=== PATIENT | male | born 1960 | race Hispanic/Latino ===

== ENCOUNTER 2024-05-21 10:35 | Emergency (ER) | payer OTHER ==
[~2024-05-21] VITALS: Ht 177.8 cm; Wt 90.3 kg
--- NOTE | 2024-05-21 11:29 | EKG ---
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
[2024-05-21 11:44] LABS: BASOPHILS # (AUTO) 0.02 K/uL (0.00-0.20); BASOPHILS % (AUTO) 0.1 % (0.0-5.0); EOSINOPHILS # (AUTO) 0.01 K/uL (0.00-0.70); EOSINOPHILS % (AUTO) 0.1 % (0.0-8.0); HEMATOCRIT 47.3 % (42-54); IMMATURE GRANULOCYTE ABSOLUTE 0.07 K/uL (0-1); LYMPHOCYTES % (AUTO) 6.2 % (21.0-51.0); MEAN CORPUSCULAR HEMOGLOBIN 33.2 pg (27.0-33.0); MEAN CORPUSCULAR HGB CONC 35.3 g/dL (32.0-36.0); MONOCYTES # (AUTO) 1.3 K/uL (0.1-1.0); MONOCYTES % (AUTO) 8.1 % (3.0-13.0); NEUTROPHILS # (AUTO) 13.4 K/uL (1.8-7.7); NEUTROPHILS % (AUTO) 85.1 % (40.0-77.0); PLATELET COUNT (AUTO) 229 K/uL (130-400); RED BLOOD CELL COUNT(AUTO) 5.03 MIL/uL (4.50-6.20); RED CELL DISTRIBUTION WIDTH 11.9 % (11.0-15.5); WHITE BLOOD COUNT (AUTO) 15.8 K/uL (4.8-10.8)
--- NOTE | 2024-05-21 11:58 | HMCIMG ---
PORTABLE CHEST RADIOGRAPH INDICATION: cp COMPARISON: None FINDINGS: Heart size is normal. The pulmonary vascularity and jethro appear normal. Subtle linear lucency along the right pleural-mediastinal interface, perhaps artifactual shadowing from underlying airways. No abnormal pulmonary parenchymal opacity or consolidation identified. No significant pleural effusion noted. No pneumothorax detected. IMPRESSION: Subtle linear lucency along the right pleural-mediastinal interface, perhaps artifactual shadowing from underlying airways. If concern for pneumomediastinum, CT imaging of the chest is recommended for further evaluation.
[2024-05-21 12:01] LABS: CREATININE 1.1 mg/dL (0.5-1.3); POTASSIUM 5.1 mmol/L (3.5-5.1)
[2024-05-21 12:52] LABS: B-TYPE NATRIURETIC PEPTIDE 12 pg/mL (0-100)
--- NOTE | 2024-05-21 14:42 | ERN ---
General Chief Complaint: Hypertension Stated Complaint: HYPERTENSION, DIZZINESS Time Seen by MD: 10:38 Time Seen by Midlevel: 10:38 Source: patient History of Present Illness Initial Comments Patient is a 64-year-old male with a past medical history of hypertension presenting to the emergency department for an elevated blood pressure reading. Patient states that his blood pressure is normally controlled in the 120s 130 systolic. Over the last two days blood pressure has been climbing up 170 systolic. [facility] and was referred to the ER for further evaluation. On arrival he does report a mild headache but denies any vision changes, focal weakness, dizziness, nausea, vomiting, or any other symptoms at this time. Patient states he was currently having his blood pressure medication dosing adjusted. Allergies: Coded Allergies: No Known Drug Allergies (Unverified Allergy, Unknown, 05/21/24) Past Medical History Past Medical History: Hypertension Past Surgical History: Other Surgical History Other: SARAH KNEE, RT SHOULDER, RCR ROS Dictation CONSTITUTIONAL: Negative except for HPI HEAD/FACE: Negative except for HPI EENT: Negative except for HPI RESPIRATORY: Negative except for HPI GASTROINTESTINAL/ABDOMINAL: Negative except for HPI GENITOURINARY: Negative except for HPI MUSCULOSKELETAL: Negative except for HPI INTEGUMENTARY: Negative except for HPI NEUROLOGICAL/PSYCH: Negative except for HPI HEMATOLOGIC/LYMPHATIC: Negative except for HPI All Systems Negative, Except as noted above. 13 point review of systems assessed and all negative except for above. Physical Exam Physical Exam Dictation Vital Signs reviewed General Appearance: Alert, oriented x 3, no acute distress, well developed, nourished. Head and Face: non-traumatic. Eyes: PERRL, pink conjunctivas, eyelid no trauma, anterior chamber with arcus senilis. Ears: Pinnas intact and no signs of trauma or erythema ear canals clear and no discharge TM no erythema Nose: No discharge, no bleeding. Oropharynx: Mouth normal, tongue pink, pharynx clear,no erythema, tonsils no exudates, no abscesses noted, mucous membrane moist Neck: Supple, non-tender, no thyromegaly, no masses, no JVD, no bruits Breast:Deferred Chest:No tenderness, no crepitus, no paradoxical movement, no retractions Lungs:Clear, well-ventilated, symmetric, no rales, no wheezing, no rhonchi, no stridor, good breath sounds bilaterally Heart: Regular rate, regular rhythm, no murmur, no gallops Vascular: no peripheral edema, Abdomen: Soft, positive bowel sounds, nondistended, no guarding, nontender, no rebound, no masses no hepatomegaly, no splenomegaly, no Aguilera's sign, no hernias. Rectal: Deferred Genital: Deferred Neurological: Normal speech, motor function intact, sensory function intact Musculoskeletal: Neck nontender, full range of motion, back nontender, full range of motion, Extremities: nontender, full range of motion Skin: Color pink, dry, no turgor, no rash, no lacerations, no abrasions, no contusions. Lymphatic: Deferred Results Laboratory and Microbiology Lab and Micro Result Laboratory Tests Test 05/21/24 11:23 White Blood Count 15.8 K/uL (4.8-10.8) H Red Blood Count 5.03 MIL/uL (4.50-6.20) Hemoglobin 16.7 g/dL (14.0-18.0) Hematocrit 47.3 % (42-54) Mean Corpuscular Volume 94.0 fL (79-99) Mean Corpuscular Hemoglobin 33.2 pg (27.0-33.0) H Mean Corpuscular Hemoglobin Concent 35.3 g/dL (32.0-36.0) Red Cell Distribution Width 11.9 % (11.0-15.5) Platelet Count 229 K/uL (130-400) Mean Platelet Volume 9.9 fL (7.5-10.5) Immature Granulocyte % (Auto) 0.4 % (0-1) Neutrophils (%) (Auto) 85.1 % (40.0-77.0) H Lymphocytes (%) (Auto) 6.2 % (21.0-51.0) L Monocytes (%) (Auto) 8.1 % (3.0-13.0) Eosinophils (%) (Auto) 0.1 % (0.0-8.0) Basophils (%) (Auto) 0.1 % (0.0-5.0) Neutrophils # (Auto) 13.4 K/uL (1.8-7.7) H Lymphocytes # (Auto) 1.0 K/uL (1.0-4.8) Monocytes # (Auto) 1.3 K/uL (0.1-1.0) H Eosinophils # (Auto) 0.01 K/uL (0.00-0.70) Basophils # (Auto) 0.02 K/uL (0.00-0.20) Absolute Immature Granulocyte (auto 0.07 K/uL (0-1) Nucleated Red Blood Cells 0.0 % (0.0-0.19) White Cell Morphology Comment See comments Sodium Level 135 mmol/L (136-145) L Potassium Level 5.1 mmol/L (3.5-5.1) Chloride Level 100 mmol/L (101-111) L Carbon Dioxide Level 30 mmol/L (21-32) Blood Urea Nitrogen 22 mg/dL (7-18) H Creatinine 1.1 mg/dL (0.5-1.3) Glomerular Filtration Rate Calc 75 mL/min (>90) Random Glucose 182 mg/dL (70-105) H Total Calcium 10.2 mg/dL (8.5-10.1) H Magnesium Level 2.00 mg/dL (1.80-2.40) Total Creatine Kinase 240 U/L (21-232) H Troponin I High Sensitivity 9 ng/L (4-75) B-Type Natriuretic Peptide 12 pg/mL (0-100) Labs Reviewed?: Yes MDM MDM: Differential diagnosis: Hypertensive urgency, hypertensive emergency, uncontrolled hypertension There are no social concerns with this patient. Prescription drug management Prescriptions will include: None Medical management and examination interpretation discussions were had by me with other qualified healthcare professionals as indicated for the patient's care. ED Course Orders Procedure Category Date Status Time 12 Lead Ekg Tracing- EKG 05/21/24 Resulted Technical 11:13 Cbc With Differential LAB 05/21/24 Complete 11:13 Basic Metabolic Panel LAB 05/21/24 Complete 11:13 B-Type Natriuretic LAB 05/21/24 Complete Peptide 11:13 Creatine Kinase, Total LAB 05/21/24 Complete 11:13 Magnesium LAB 05/21/24 Complete 11:13 Troponin I High LAB 05/21/24 Complete Sensitivity 11:13 Chest 1vw RAD 05/21/24 Resulted 11:13 Ct Chest W/Contrast CT 05/21/24 Resulted 12:39 Iohexol (Omnipaque) PHA 05/21/24 Complete 14:50 Current Medications Medications (Trade) Dose Ordered Sig/Valeri Route PRN Reason Start Time Stop Time Status Last Admin Dose Admin Iohexol (Omnipaque) 75 ml STK-MED ONCE IV 05/21/24 14:50 05/21/24 14:51 DC Vital Signs Date Time Temp Pulse Resp B/P (MAP) Pulse Ox O2 Delivery O2 Flow Rate FiO2 05/21/24 16:26 98.2 86 18 160/89 99 Room Air* 0 21 05/21/24 11:34 98.8 96 18 171/91 99 Room Air [facility] [address] [id number] IMAGING REPORT Signed PATIENT: ANDREI JIMENEZ MR#: [id number] : 1960 SEX: M AGE: 64 LOCATION: [facility] ORDER 1240 STATUS: REG REPORT#: [id number] SERVICE 1239 REASON: abn xray ORDERING PHYSICIAN: RENY BERRIOS PROCEDURE: CHEST W - CT CHEST W/CONTRAST CT CHEST WITH CONTRAST INDICATION: TECHNIQUE: Routine axial images using 5 mm slice thickness were acquired from the lung apices to the bases after the administration of 75 mL of Omnipaque 350 IV contrast.Coronal and sagittal reformatted images acquired for interpretation. CT was performed with one or more of the following dose reduction techniques: Automated exposure control, adjustment of the mA and/or kV according to patient size, or use of iterative reconstruction technique. COMPARISON: None FINDINGS: The heart size is normal. No pericardial effusion noted. The visualized great vessels and thoracic aorta are within normal limits. The trachea and airways are patent. No evidence for pulmonary nodule, consolidation, cavitary lesion, or other abnormal pulmonary parenchymal opacity. No axillary, hilar, or mediastinal lymphadenopathy. No pleural effusion or pneumothorax identified. Diffuse low attenuation of the liver parenchyma suggests fatty change. Mild thoracic spondylosis. IMPRESSION: Linear lucency described on the recent radiographic imaging corresponded to artifact. No acute cardiac pulmonary process identified. Hepatic steatosis. DICTATED BY: JAYNA NUNEZ MD DATE: 05/21/24 1513 ELECTRONICALLY SIGNED BY: JAYNA NUNEZ MD DATE: 05/21/24 1524 [facility] [address] [id number] IMAGING REPORT Signed PATIENT: ANDREI JIMENEZ MR#: [id number] : 1960 SEX: M AGE: 64 LOCATION: H ORDER 13 STATUS: REG ER REPORT#: [id number] SERVICE 1113 REASON: cp ORDERING PHYSICIAN: RENY BERRIOS PROCEDURE: CXR1VW - CHEST 1VW PORTABLE CHEST RADIOGRAPH INDICATION: cp COMPARISON: None FINDINGS: Heart size is normal. The pulmonary vascularity and jethro appear normal. Subtle linear lucency along the right pleural-mediastinal interface, perhaps artifactual shadowing from underlying airways. No abnormal pulmonary parenchymal opacity or consolidation identified. No significant pleural effusion noted. No pneumothorax detected. IMPRESSION: Subtle linear lucency along the right pleural-mediastinal interface, perhaps artifactual shadowing from underlying airways. If concern for pneumomediastinum, CT imaging of the chest is recommended for further evaluation. DICTATED BY: JAYNA NUNEZ MD DATE: 05/21/24 115 ELECTRONICALLY SIGNED BY: JAYNA NUNEZ MD DATE: 05/21/24 1158 DX & DISP Disposition: Discharge Departure Impression: Primary Impression: Uncontrolled hypertension Condition: Stable Additional Instructions: Your blood work today is unremarkable. Your cardiac enzymes are negative. Your chest x-ray revealed a subtle abnormality which was concerning for pneumomediastinum however a CT scan of the chest was performed which does not reveal any acute abnormality. Your blood pressure in the ER has remained in the 160s systolic. You will need to follow up with your primary care doctor for possible blood pressure medication adjustment. Referrals: MARYCARMEN CANTU MD (PCP) I have reviewed the case, and I agree with, Diagnosis and Plan I performed the substantive portion of the visit. I have reviewed and personally made and approve the management plan that is documented in the note by myself or the INE[facility]. I acknowledge for responsibility for the patient's management plan. RENY BERRIOS May 21, 2024 14:42
[2024-05-21] MEDS ORDERED: IOHEXOL-350 75 ML VIAL IV ONE (14:50)
--- NOTE | 2024-05-21 15:20 | HMCIMG ---
CT CHEST WITH CONTRAST INDICATION: TECHNIQUE: Routine axial images using 5 mm slice thickness were acquired from the lung apices to the bases after the administration of 75 mL of Omnipaque 350 IV contrast.Coronal and sagittal reformatted images acquired for interpretation. CT was performed with one or more of the following dose reduction techniques: Automated exposure control, adjustment of the mA and/or kV according to patient size, or use of iterative reconstruction technique. COMPARISON: None FINDINGS: The heart size is normal. No pericardial effusion noted. The visualized great vessels and thoracic aorta are within normal limits. The trachea and airways are patent. No evidence for pulmonary nodule, consolidation, cavitary lesion, or other abnormal pulmonary parenchymal opacity. No axillary, hilar, or mediastinal lymphadenopathy. No pleural effusion or pneumothorax identified. Diffuse low attenuation of the liver parenchyma suggests fatty change. Mild thoracic spondylosis. IMPRESSION: Linear lucency described on the recent radiographic imaging corresponded to artifact. No acute cardiac pulmonary process identified. Hepatic steatosis.
[2024-05-21 16:26] VITALS: BP 160/89; PULSE 86; RESP 18; TEMP 98.2; O2SAT 99
== END 2024-05-21 16:19 | disposition home or self-care (01) ==
LOC: EDH 10:35
DX: I10 Essential (primary) hypertension (principal)
CPT/HCPCS: 99285; 71260; 71045; 82550; 83735; 84484; 80048; 83880; 85025; 36415; 93005; Q9967